=== PATIENT | female | born 1965 | race Caucasian/White ===

== ENCOUNTER 2017-12-13 18:23 | Emergency (ER) | payer OTHER ==
[2017-12-13 18:28] VITALS: BP 147/87; PULSE 130; RESP 18; TEMP 101.1; O2SAT 97
[2017-12-13 21:02] LABS: AUTOMATED NEUTROPHIL # 7.1 TH/MM3 (1.8-7.7); BASOPHIL # 0.1 TH/MM3 (0-0.2); BASOPHIL % 0.6 % (0.0-2.0); EOSINOPHIL # 0.1 TH/MM3 (0-0.4); EOSINOPHIL % 0.7 % (0.0-4.0); HEMATOCRIT 36.6 % (35.0-46.0); HEMOGLOBIN 12.9 GM/DL (11.6-15.3); LYMPH % 7.1 % (9.0-44.0); LYMPHOCYTE # 0.6 TH/MM3 (1.0-4.8); MEAN CELL VOLUME 85.8 FL (80.0-100.0); MEAN CORPUSCULAR HEMOGLOBIN 30.2 PG (27.0-34.0); MEAN CORPUSCULAR HGB CONC 35.2 % (32.0-36.0); MEAN PLATELET VOLUME 8.2 FL (7.0-11.0); MONOCYTE # 0.7 TH/MM3 (0-0.9); NEUT % 83.6 % (16.0-70.0); PLATELET COUNT 325 TH/MM3 (150-450); RED BLOOD COUNT 4.27 MIL/MM3 (4.00-5.30); RED CELL DISTRIBUTION WIDTH 12.9 % (11.6-17.2); WHITE BLOOD COUNT 8.5 TH/MM3 (4.0-11.0)
[2017-12-13 21:03] LABS: AMORPHOUS SEDIMENT, URINE RARE; BILIRUBIN, URINE NEG (NEG); BLOOD, URINE MOD (NEG); CALCIUM OXALATE CRYSTALS,URINE MANY /hpf; GLUCOSE,URINE 300 mg/dL (NEG); KETONE, URINE 10 mg/dL (NEG); MUCUS URINE FEW /lpf (OCC); NITRITE,URINE NEG (NEG); SQUAMOUS EPITHELIAL CELL URINE 1 /hpf (0-5); URINE COLOR YELLOW (YELLW/STRAW); URINE LEUKOCYTE ESTERASE NEG (NEG)
[2017-12-13] MEDS ORDERED: OSEL75 PO (21:21)
[2017-12-13] MEDS ORDERED: IBUP-232 PO (21:21)
--- NOTE | 2017-12-13 21:22 | PD ---
HPI Chief Complaint: Cold / Flu Symptoms Time Seen by Provider: 21:04 Travel History International Travel<30 days: No Contact w/Intl Traveler<30days: No Traveled to known affect area: No History of Present Illness HPI 52-year-old female complains of body aches and pains fever cough rhinorrhea and sore throat for about 2 days. Activity has been decreased. Tylenol has not helped with the pain severity for the body aches. No chest pain. Associated symptoms include nausea. Onset gradual. Severity moderate. PFSH Past Medical History Medical History: Denies Significant Hx Cardiovascular Problems: Yes ?: Not Past Surgical History Surgical History: No Previous Surgery Social History Alcohol Use: No Tobacco Use: No Substance Use: No Allergies-Medications (Allergen,Severity, Reaction): Coded Allergies: No Known Allergies (Unverified , 12/13/17) Reported Meds & Prescriptions Reported Meds & Active Scripts Active Ibuprofen 600 Mg Tab 600 Mg PO Q8HR PRN Tamiflu (Oseltamivir Phosphate) 75 Mg Cap 75 Mg PO BID 5 Days Review of Systems Except as stated in HPI: all other systems reviewed are Neg General / Constitutional: Positive: Fever, Chills Physical Exam Narrative GENERAL: 52-year-old female pleasant well-nourished well-developed Macedonian- speaking with translation provided by a family member; translation services offered however patient preferred family member utilization Vital Signs Date Time Temp Pulse Resp B/P (MAP) Pulse Ox O2 Delivery O2 Flow Rate FiO2 12/13/17 18:28 101.1 130 18 147/87 (107) 97 SKIN: Warm and dry. HEAD: Atraumatic. Normocephalic. EYES: Pupils equal and round. No scleral icterus. No injection or drainage. ENT: No nasal bleeding or discharge. Mucous membranes pink and moist. NECK: Trachea midline. No JVD. CARDIOVASCULAR: Regular rate and rhythm. RESPIRATORY: No accessory muscle use. Clear to auscultation. Breath sounds equal bilaterally. GASTROINTESTINAL: Abdomen soft, non-tender, nondistended. Hepatic and splenic margins not palpable. MUSCULOSKELETAL: Extremities without clubbing, cyanosis, or edema. No obvious deformities. NEUROLOGICAL: Awake and alert. No obvious cranial nerve deficits. Motor grossly within normal limits. Five out of 5 muscle strength in the arms and legs. Normal speech. PSYCHIATRIC: Appropriate mood and affect; insight and judgment normal. Data Data Last Documented VS Vital Signs Date Time Temp Pulse Resp B/P (MAP) Pulse Ox O2 Delivery O2 Flow Rate FiO2 12/13/17 21:52 114 18 129/83 (98) 97 Room Air 12/13/17 18:28 101.1 Orders Orders Complete Blood Count With Diff (12/13/17 18:30) Comprehensive Metabolic Panel (12/13/17 18:30) Lipase (12/13/17 18:30) Urinalysis - C+S If Indicated (12/13/17 18:30) Influenzae A/B Antigen (12/13/17 18:30) Oseltamivir (Tamiflu) (12/13/17 21:30) Ibuprofen (Motrin) (12/13/17 21:30) Sodium Chlor 0.9% 1000 Ml Inj (Ns 1000 M (12/13/17 21:47) Sodium Chlor 0.9% 1000 Ml Inj (Ns 1000 M (12/13/17 22:00) Iv Access Insert/Monitor (12/13/17 21:47) Ecg Monitoring (12/13/17 21:47) Oximetry (12/13/17 21:47) Labs Laboratory Tests Test 12/13/17 20:16 12/13/17 20:20 White Blood Count 8.5 TH/MM3 Red Blood Count 4.27 MIL/MM3 Hemoglobin 12.9 GM/DL Hematocrit 36.6 % Mean Corpuscular Volume 85.8 FL Mean Corpuscular Hemoglobin 30.2 PG Mean Corpuscular Hemoglobin Concent 35.2 % Red Cell Distribution Width 12.9 % Platelet Count 325 TH/MM3 Mean Platelet Volume 8.2 FL Neutrophils (%) (Auto) 83.6 % Lymphocytes (%) (Auto) 7.1 % Monocytes (%) (Auto) 8.0 % Eosinophils (%) (Auto) 0.7 % Basophils (%) (Auto) 0.6 % Neutrophils # (Auto) 7.1 TH/MM3 Lymphocytes # (Auto) 0.6 TH/MM3 Monocytes # (Auto) 0.7 TH/MM3 Eosinophils # (Auto) 0.1 TH/MM3 Basophils # (Auto) 0.1 TH/MM3 CBC Comment DIFF FINAL Differential Comment Blood Urea Nitrogen 10 MG/DL Creatinine 0.83 MG/DL Random Glucose 243 MG/DL Total Protein 8.3 GM/DL Albumin 3.9 GM/DL Calcium Level 9.2 MG/DL Alkaline Phosphatase 101 U/L Aspartate Amino Transf (AST/SGOT) 30 U/L Alanine Aminotransferase (ALT/SGPT) 43 U/L Total Bilirubin 0.4 MG/DL Sodium Level 134 MEQ/L Potassium Level 3.2 MEQ/L Chloride Level 96 MEQ/L Carbon Dioxide Level 27.3 MEQ/L Anion Gap 11 MEQ/L Estimat Glomerular Filtration Rate 72 ML/MIN Lipase 151 U/L Urine Color YELLOW Urine Turbidity HAZY Urine pH 5.0 Urine Specific [place] 1.029 Urine Protein 30 mg/dL Urine Glucose (UA) 300 mg/dL Urine Ketones 10 mg/dL Urine Occult Blood MOD Urine Nitrite NEG Urine Bilirubin NEG Urine Urobilinogen LESS THAN 2.0 MG/DL Urine Leukocyte Esterase NEG Urine RBC 12 /hpf Urine WBC 2 /hpf Urine Squamous Epithelial Cells 1 /hpf Urine Calcium Oxalate Crystals MANY /hpf Urine Amorphous Sediment RARE Urine Mucus FEW /lpf Microscopic Urinalysis Comment CATH-CULT NOT IND MDM Medical Decision Making Medical Screen Exam Complete: Yes Emergency Medical Condition: Yes Medical Record Reviewed: Yes Differential Diagnosis influenza, sepsis, UTI Narrative Course CBC & BMP Diagram 12/13/17 20:16 Total Protein 8.3 H, Albumin 3.9, Calcium Level 9.2, Alkaline Phosphatase 101, Aspartate Amino Transf (AST/SGOT) 30, Alanine Aminotransferase (ALT/SGPT) 43, Total Bilirubin 0.4 Lipase 151 UA: No UTI Influenza: no influenza The patient is resting comfortably and feels better, is alert and in no distress. The patients results and examination findings were discussed. The repeat examination is unremarkable and benign. The history, exam, diagnostic testing, and current condition do not suggest any significant pathology to warrant further testing, continued ED treatment, admission, or surgical evaluation at this point. The vital signs have been stable. The patient does not have uncontrollable pain, intractable vomiting, or other significant symptoms. The patient's condition is stable and appropriate for discharge. The patient will pursue further outpatient evaluation with a primary care physician or other designated or consulting physician as indicated in the discharge instructions. The patient expressed understanding and was agreeable with this plan. Diagnosis Primary Impression: Influenza Referrals: Primary Care Physician call for appointment Med/Other Pt SpecificInfo: Prescription(s) given Scripts Ibuprofen (Ibuprofen) 600 Mg Tab 600 MG PO Q8HR Y for PAIN, #30 TAB 0 Refills Prov: Tom,Duran C. MD 12/13/17 Oseltamivir (Tamiflu) 75 Mg Cap 75 MG PO BID for Mgmt Viral Infection for 5 Days, #10 CAP 0 Refills Prov: Duran Tom MD 12/13/17 Disposition: 01 DISCHARGE HOME Condition: Stable Duran Tom MD Dec 13, 2017 21:22
[2017-12-13] MEDS ORDERED: IBUPROFEN 600 MG TAB PO ONE (21:30)
[2017-12-13] MEDS ORDERED: OSELTAMIVIR PHOSPHATE 75 MG CAP PO ONE (21:30)
[2017-12-13 21:32] LABS: ALBUMIN 3.9 GM/DL (3.4-5.0); AST (GOT) 30 U/L (15-37); BICARBONATE 27.3 MEQ/L (21.0-32.0); BLOOD UREA NITROGEN 10 MG/DL (7-18); CALCIUM 9.2 MG/DL (8.5-10.1); CHLORIDE 96 MEQ/L (98-107); CREATININE 0.83 MG/DL (0.50-1.00); GLOMERULAR FILTRATION RATE 72 ML/MIN (>89); GLUCOSE,RANDOM 243 MG/DL (74-106); SODIUM (NA) 134 MEQ/L (136-145)
[2017-12-13 21:37] LABS: ALKALINE PHOSPHATASE 101 U/L (45-117); ALT (GPT) 43 U/L (10-53); TOTAL BILIRUBIN ADULT 0.4 MG/DL (0.2-1.0); TOTAL PROTEIN 8.3 GM/DL (6.4-8.2)
[2017-12-13] MEDS ORDERED: SODIUM CHLOR 0.9% 1000 ML INJ 1,000 ML IV SCH (21:47)
[2017-12-13 21:52] VITALS: BP 129/83; PULSE 114; RESP 18; O2SAT 97
[2017-12-13] MEDS ORDERED: SODIUM CHLOR 0.9% 1000 ML INJ 1,000 ML IV ONE (22:00)
== END 2017-12-13 23:26 | disposition home or self-care (01) ==
LOC: NED 18:23 → NEPD 23:26
DX: J11.1 Influenza due to unidentified influenza virus with other respiratory manifestations (principal)
CPT/HCPCS: 80053; 81001; 83690; 85025; 87804; 99283; J7030